=== PATIENT | male | born 1985 | race Hispanic/Latino ===

== ENCOUNTER 2020-02-17 15:42 | Outpatient (CLI) | payer OTHER ==
--- NOTE | 2020-02-17 16:48 | ULT ---
Exam: Testicular ultrasound HISTORY: Left testicular pain, x9 months. COMPARISON: None TECHNIQUE: Sagittal and transverse imaging of the left and right hemiscrotum are performed. Testicula r Doppler is performed with grayscale, color-flow, Doppler imaging and spectral waveform analysis. FINDINGS: Right hemiscrotum: Testicle: Heterogeneous echotexture. No intratesticular masses. Right testicle measurements: 4.6 x 6.3 x 3.1 Right epididymis: Normal echotexture. Right epididymis measurements: 1.5 x 0.4 cm Hydrocele: None Left hemiscrotum: Left testicle: Heterogeneous echotexture. No intratesticular masses. Solitary focal punctate calcific ation. Left testicle measurements: 4.1 x 5.5 x 3.1 cm Left epididymis: Normal echotexture. Left epididymis measurements:0.7 x 1.1 cm Hydrocele: None There are some vessels present in the left hemiscrotum however, these do not increase upon Valsalva. Significance is uncertain. Definite varicoceles are not appreciated at this time. Testicular Doppler: There is symmetric vascular flow to the left and right testicle. IMPRESSION: No acute abnormality. Additional findings as above.
== END 2020-02-17 15:43 | disposition home or self-care (01) ==
LOC: SCSULT 15:42
PROVIDERS: ATTEND Nurse Practitioner Family
DX: N50.812 Left testicular pain (principal)
CPT/HCPCS: 76870; 93976